=== PATIENT | male | born 1975 | race Two or more races ===

== ENCOUNTER 2022-09-27 03:37 | Emergency (ER) | payer OTHER ==
[~2022-09-27] VITALS: Ht 180.3 cm; Wt 115.8 kg
[2022-09-27 05:37] LABS: Basophils # (auto) 0.1 10 ^3/uL (0-0.2); Basophils % (auto) 0.5 % (0.0-2.0); Eosinophils # (auto) 0 10 ^3/uL (0-0.8); Hematocrit 43.2 % (41.0-53.0); Hemoglobin 15.2 g/dL (13.5-17.5); Lymphocytes # (auto) 0.8 10 ^3/uL (0.4-5.4); Lymphocytes % (auto) 6.2 % (10.0-50.0); Mean Corpuscular Hemoglobin 30.3 pg (28.0-32.0); Mean Corpuscular Hgb Conc. 35.1 g/dL (32.0-36.0); Mean Corpuscular Volume 86.2 fL (80.0-100.0); Monocytes # (auto) 0.5 10 ^3/uL (0-1.3); Monocytes % (auto) 3.7 % (0.0-12.0); Neutrophils # (auto) 11.1 10 ^3/uL (1.6-8.6); Neutrophils % (auto) 89.6 % (37.0-80.0); Red Blood Cells 5.01 10^6/uL (4.5-5.90); Red Cell Distribution Width 13.4 % (11.8-14.3); White Blood Cell 12.4 10^3/uL (4.4-10.8)
[2022-09-27 06:04] LABS: Albumin 4.3 g/dL (3.4-5.0); Calcium 9.3 mg/dL (8.5-10.1)
[2022-09-27 06:09] LABS: BUN/Creatinine Ratio 17.5; Bilirubin, Total 0.5 mg/dL (0.2-1.0); Total Protein 7.8 g/dL (6.4-8.2)
[2022-09-27] MEDS ORDERED: KETOROLAC TROMETH 60MG/2ML VIAL IV ONE (06:30)
[2022-09-27] MEDS ORDERED: ONDANSETRON HCL 4 MG/2 ML VIAL IV SCH (06:30)
[2022-09-27] MEDS ORDERED: LACTATED RINGER'S 1,000 ML IV ONE (06:30)
[2022-09-27 07:40] LABS: Urine Bacteria NONE SEEN /hpf (None Seen); Urine Blood Negative /uL (Negative); Urine Mucus FEW (None Seen); Urine Specific Gravity 1.028 (1.001-1.035); Urine WBC 3 /hpf (0 - 3)
[2022-09-27] MEDS ORDERED: ONDA-155 PO (09:54)
[2022-09-27] MEDS ORDERED: DICL50TA2 PO (09:54)
[2022-09-27] MEDS ORDERED: FAMO20TA10 PO (09:54)
[2022-09-27 10:40] VITALS: BP 121/82
== END 2022-09-27 10:54 | disposition home or self-care (01) ==
LOC: ER 03:41
DX: K80.50 Calculus of bile duct without cholangitis or cholecystitis without obstruction (principal)
CPT/HCPCS: 36415; 76705; 80053; 81001; 83690; 85025; 96361; 96374; 99284; J1885; J2405